=== PATIENT | female | born 1965 | race Caucasian/White ===

== ENCOUNTER 2022-06-15 09:56 | Day surgery (SDC) | payer BC ==
[2022-06-14 13:05] VITALS: BMI 51.5
[2022-06-15] MEDS ORDERED: CeleCOXIB 100 MG CAP ONE (10:19)
[2022-06-15] MEDS ORDERED: Lidocaine 1% MPF 2 ML VIAL ONE (11:23)
[2022-06-15] MEDS ORDERED: Midazolam HCl 2 mg/2 ml Vial ONE ×2 (12:21→13:07)
[2022-06-15] MEDS ORDERED: CEFAZOLIN 2 GM VIAL ONE (12:55)
[2022-06-15] MEDS ORDERED: Fentanyl 100 MCG/2 ML VIAL ONE (13:07)
[2022-06-15] MEDS ORDERED: PROPOFOL 40 ML ONE (13:07)
[2022-06-15] MEDS ORDERED: Dexamethasone 4 mg/ml Vial ONE (13:07)
[2022-06-15] MEDS ORDERED: Ondansetron PF 4 MG/2 ML Vial ONE (13:07)
[2022-06-15] MEDS ORDERED: Ketamine 50 MG/ML (10ML VIAL) ONE (13:13)
[2022-06-15] MEDS ORDERED: SUGAMMADEX SODIUM 200 MG/2 ML VIAL ONE (14:09)
== END 2022-06-15 14:40 | disposition home or self-care (01) ==
LOC: CSHSDC 09:56
PROVIDERS: ATTEND Obstetrics & Gynecology
PROC: 0UDB8ZX Extraction of Endometrium, Via Natural or Artificial Opening Endoscopic, Diagnostic (ICD-10-PCS; principal; 2022-06-15)
DX: N84.0 Polyp of corpus uteri (principal); N84.1 Polyp of cervix uteri; N95.0 Postmenopausal bleeding; E66.01 Morbid (severe) obesity due to excess calories; Z68.43 Body mass index [BMI] 50.0-59.9, adult; I10 Essential (primary) hypertension; R32 Unspecified urinary incontinence; F41.9 Anxiety disorder, unspecified; Z79.899 Other long term (current) drug therapy; Z88.0 Allergy status to penicillin; Z88.1 Allergy status to other antibiotic agents; Z88.8 Allergy status to other drugs, medicaments and biological substances
CPT/HCPCS: 36415; 86850; 86900; 86901; 88305; J1100; J2250; J2405; J2704; J3010